=== PATIENT | male | born 1980 | race Caucasian/White ===

== ENCOUNTER 2019-02-13 14:03 | Day surgery (SDC) | payer OTHER, SELFPAY ==
[2019-02-12 14:32] VITALS: BMI 34.7
[2019-02-13] VITALS (10 sets, daily range): BP systolic 115–167; BP diastolic 69–127; PULSE 90–120; RESP 8–96; TEMP 36–37.6; O2SAT 17–100; BMI 34.7
--- NOTE | 2019-02-13 | PATH_ITS ---
[facility] Accession Number: [id number] . 01 Material submitted: . hemorrhoids - HEMORRHOIDS . 01 Diagnosis: Hemorrhoids, Hemorrhoidectomy: External and internal hemorrhoidal tissue. Negative for dysplasia and malignancy. [facility] 02/15/2019 1611 Local . 01 Electronically signed: . Katie Patterson MD, Pathologist NPI- [id number] . 01 Gross description: . Received in formalin, labeled hemorrhoids, are multiple pieces of purple-pink bulging skin (5.0 x 4.2 x 1.8 cm in aggregate). The resection margin is inked blue. Two full-thickness policy services representative sections are submitted in cassettes A1 and A2-A3. ([id number]) /MRV 02/14/2019 1058 Local . 01 Pathologist provided ICD-10: K64.9 . 01 CPT . 454277 Performed at: [address] [facility] [address], [place], [place] [id number] MD Truman Jalloh MD Phone: [phone]
[2019-02-13] MEDS: LACTATED RINGERS 1,000 ML 42 ML IV (15:04)
--- NOTE | 2019-02-13 16:15 | PM.PREOP ---
Pre-operative Note Interval Note History & Physical reviewed/Exam performed by Physician: Yes Changes to H&P: No
--- NOTE | 2019-02-13 16:58 | SUR.OPER ---
Prone on padded OR bed, head in foam head support, gel chest rolls, gel pad under knees, pillow under lower legs, toes free of pressure, arms secured on padded arm boards at <90 degrees abduction. Safety belt at thigh.
--- NOTE | 2019-02-13 17:04 | SUR.OPER ---
SURGIFOAM PACKED IN ANUS
[2019-02-13] MEDS: BUPIVACAINE 0.25% (PF) VIAL 30 ML INJ (17:06)
[2019-02-13] MEDS: DIBUCAINE 1% OINT 28 GM 1 APPLIC TOP (17:07)
--- NOTE | 2019-02-13 18:00 | SUR.PHASEII ---
Addendum entered by Rosey Starr R.N. 02/13/19 18:03: note written in error Original Note: Dressing reinforced by Dr shah. Patient teaching on dressing change by Dr Payne.
--- NOTE | 2019-02-13 18:18 | PM.OP.1 ---
Operative Date/Time/Diagnoses Date of procedure: 02/13/19 Time of procedure: 18:19 Pre-op diagnosis: Hemorrhoids Post-op diagnosis: same Procedure & Clinicians Procedure: excisional hemorrhoidectomy Same procedure as scheduled: Yes Indications: 38-year-old male with symptomatic grade 3 hemorrhoid disease secondary to irritable bowel syndrome presents for an excisional hemorrhoidectomy. Surgeon: Elmer Frias Click Yes if Unassisted: Yes Anesthesia Type: General Operative Notes Findings: Right posterior and left lateral friable prolapsed hemorrhoids with internal and external component Specimen(s): other Prosthetic devices, grafts, tissues, transplants, or devices: Hemorrhoids Estimated Blood Loss (mL): 200 Procedure in detail: The patient was brought to the operating room placed supine on the table. Bilateral lower extremity compression devices were applied. General anesthesia was induced and they were intubated with an endotracheal tube. They were then placed into prone position. They were then prepped and draped in usual sterile fashion. Time-out was performed ensure the correct patient procedure necessary equipment within the operating room. Rectal block was performed by injecting 20 mL of 0.25% bupivacaine into the intersphincteric groove. A internal examination of the anal canal was made. The right posterior hemorrhoidal pedicle and left lateral were prolapsed and friable and had both external and internal component. They were grasped elevated and excised with electorcautery off the internal spincter. The mucosal defect was then closed with a running 0 Vicyrl suture. Hemostasis was checked. The specimens were passed off the field. Wound was irrigated with saline. Gelfoam was then placed into the anal anal. Sponge and instrument counts were correct at the end of the procedure. They emerged from anesthesia were extubated and transferred to the postoperative care unit in stable condition Post-operative Condition: stable Disposition: Acute Care
== END 2019-02-13 19:11 | disposition home or self-care (01) ==
PROVIDERS: PCP Family Medicine; Visit Provider Surgery
PROC: (CPT 46255; principal; 2019-02-13 15:45)
DX: K64.2 Third degree hemorrhoids (principal); K58.9 Irritable bowel syndrome, unspecified; G47.33 Obstructive sleep apnea (adult) (pediatric)
CPT/HCPCS: 46255; J1100; J1885; J2250; J2405; J2704; J3010